=== PATIENT | female | born 1975 | race Caucasian/White ===

== ENCOUNTER 2018-01-22 08:24 | Emergency (ER) | payer OTHER ==
--- NOTE | 2018-01-22 09:30 | ER Document Report ---
ED Respiratory Problem - General Chief Complaint: Shortness Of Breath Stated Complaint: SHORTNESS OF BREATH, CHEST PAIN Time Seen by Provider: 01/22/18 09:23 Notes: The patient is a 42-year-old female, past medical history Hodgkin's lymphoma in her 20s (in remission), 0.25 packs/day smoker, presents with several days of a dry cough and nasal congestion. Earlier today, she began to feel slightly short of breath and had some substernal chest pain, which resolved. She had this in the past and it quickly resolved without intervention. She denies hemoptysis, fevers, leg swelling, OCP use, nausea, vomiting, radiation of her chest pain or back pain. - Related Data Allergies/Adverse Reactions: Iodinated Contrast- Oral and IV Dye Allergy (Verified 01/22/18 09:25) iodine Allergy (Verified 01/22/18 08:28) Penicillins Allergy (Verified 01/22/18 08:28) Past Medical History - General Information source: Patient - Social History Smoking Status: Current Every Day Smoker Frequency of alcohol use: None Drug Abuse: None Family History: Reviewed & Not Pertinent Patient has suicidal ideation: No Patient has homicidal ideation: No Renal/ Medical History: Denies: Hx Peritoneal Dialysis Review of Systems - Review of Systems Notes: REVIEW OF SYSTEMS: CONSTITUTIONAL: -fevers, -chills EENT: -eye pain, -difficulty swallowing, -nasal congestion CARDIOVASCULAR: +chest pain, -syncope. RESPIRATORY: +cough, +SOB GASTROINTESTINAL: -abdominal pain, -nausea, -vomiting, -diarrhea GENITOURINARY: -dysuria, -hematuria MUSCULOSKELETAL: -back pain, -neck pain SKIN: -rash or skin lesions. HEMATOLOGIC: -easy bruising or bleeding. LYMPHATIC: -swollen, enlarged glands. NEUROLOGICAL: -altered mental status or loss of consciousness, -headache, - neurologic symptoms PSYCHIATRIC: -anxiety, -depression. ALL OTHER SYSTEMS REVIEWED AND NEGATIVE. Physical Exam - Vital signs Vitals: Temp Pulse Resp BP Pulse Ox 98.5 F 97 16 145/99 H 98 01/22/18 08:42 01/22/18 08:42 01/22/18 08:42 01/22/18 08:42 01/22/18 08:42 - Notes Notes: PHYSICAL EXAMINATION: GENERAL: Well-appearing, well-nourished and in no acute distress. HEAD: Atraumatic, normocephalic. EYES: Pupils equal round and reactive to light, extraocular movements intact, sclera anicteric, conjunctiva are normal. ENT: nares patent, oropharynx clear without exudates. Moist mucous membranes. NECK: Normal range of motion, supple without lymphadenopathy LUNGS: Breath sounds clear to auscultation bilaterally and equal. No wheezes rales or rhonchi. HEART: Regular rate and rhythm without murmurs ABDOMEN: Soft, nontender, normoactive bowel sounds. No guarding, no rebound. No masses appreciated. EXTREMITIES: Normal range of motion, no pitting or edema. No cyanosis. NEUROLOGICAL: Cranial nerves grossly intact. Normal speech, normal gait. Normal sensory and motor exams. PSYCH: Normal mood, normal affect. SKIN: Warm, Dry, normal turgor, no rashes or lesions noted. Course - Re-evaluation Re-evalutation: Patient is in no acute respiratory distress. EKG does not show any ischemic changes and troponin is negative. Her HEART score is 1. She is low risk for PE , but unable to PERC out due to her Hx of cancer. Will send d-dimer and obtain CTA if positive. D-dimer is negative, so this rules out PE. CXR does not show any acute infiltrates. Symptoms are atypical for aortic dissection at this time. Instructed her about chest wall pain management and instructions to follow with her primary care physician. Given very strict return precautions and she understands. - Vital Signs Vital signs: Temp Pulse Resp BP Pulse Ox 98.5 F 97 16 145/99 H 98 01/22/18 08:42 01/22/18 08:42 01/22/18 08:42 01/22/18 08:42 01/22/18 08:42 - Laboratory Result Diagrams: 01/22/18 09:37 01/22/18 09:37 Laboratory results interpreted by me: 01/22/18 01/22/18 09:37 09:37 Hgb 10.5 L Hct 33.2 L MCV 73 L MCH 22.9 L MCHC 31.6 L RDW 17.4 H Eosinophils % 7.5 H Creatine Kinase 28 L - Diagnostic Test Radiology reviewed: Image reviewed, Reports reviewed Radiology results interpreted by me: CXR: NAD - EKG Interpretation by Oh EKG shows normal: Sinus rhythm, [place], Intervals, QRS Complexes, ST-T Waves Rate: Normal Discharge - Discharge Clinical Impression: Shortness of breath Chest pain Qualifiers: Chest pain type: unspecified Qualified Code(s): R07.9 - Chest pain, unspecified Condition: Stable Disposition: HOME, SELF-CARE Additional Instructions: CHEST PAIN OF UNCLEAR CAUSE: The exact cause of your chest pain isn't clear. Fortunately, there is no evidence of a dangerous medical condition. Further testing may be required to find the source of the pain. Most often, we find that this pain is coming from the chest wall -- the muscles or rib joints in the chest. But chest pain can come from the lung and lung lining, the esophagus, the heart valves or heart lining, and even the stomach or gallbladder. Rest. Eat lightly until the pain is gone. We may prescribe medicine for pain and inflammation. You should call the physician immediately if the pain radiates to the shoulder, jaw or arms; if you start to run a fever or develop a cough; or if you develop shortness of breath, or other new or alarming symptoms. NORMAL EXAM AND WORKUP: At this time, your examination and workup show no significant abnormality. No significant abnormal physical findings were noted. All laboratory, EKG, and imaging (x-ray, CT scans, ultrasound) studies that were ordered show no significant abnormality. Although your examination and all studies that were ordered showed no significant abnormal finding, there are no examinations and no studies that are 100% accurate. There is always the possibility that some abnormality could exist and not be detected with physical examination or within the limits and capabilities of laboratory and other studies. You should return or follow up as you were instructed on your visit today for further evaluation if your symptoms do not resolve. CHEST WALL PAIN: Your chest pain may be coming from the chest wall. This is often caused by straining the muscles or joints in the chest during physical activity, direct trauma, coughing, or vigorous vomiting. Persons with arthritis are especially prone to this type of pain, due to inflammation of the cartilage joints near the breast bone. Occasionally, no cause can be found. Rest from strenuous physical activity. This kind of chest pain is usually made worse by movement of the chest. Depending on the symptoms, we may prescribe medicine for pain, muscle relaxation, and antiinflammatory effects. If the pain is new, and seems to be due to muscle strain, cold packs can help. Otherwise, apply gentle warmth to the painful area for 15 minutes every hour or two. You should call contact the doctor immediately if things change. Further evaluation is needed if you develop a fever or cough, if the nature of the pain changes, or if you become short of breath. ACID REFLUX DISEASE (GERD): Gastro-Esophageal Reflux Disease (GERD) is caused by stomach acid refluxing back up into the esophagus. The valve at the end of the esophagus may be weak. This is common in persons with a hiatal hernia. GERD symptoms can include indigestion, chest pain, heartburn, or food "sticking." Certain foods, alcohol, and aspirin can make GERD worse. Treatment depends on the severity. Usually, antacids or acid-suppressing medicines are used. When the esophagus is acutely inflamed, the physician will often prescribe membrane-protective drugs such as Carafate. Some patients benefit from medication such as Reglan that tightens the valve at the top of the stomach. Avoid those foods that bring on your symptoms. For many people, these foods are coffee, chocolate, onions, garlic, and carbonated drinks. Don't use alcohol, aspirin, caffeine, or tobacco. Don't eat late at night -- within 4 hours of bedtime. Don't over-eat. If necessary, elevate the head of your bed about 4 inches so that stomach acid will not roll up into your esophagus. Call the doctor if you develop severe chest pain, inability to swallow fluids, fever, or worsening symptoms. FOLLOW-UP CARE: If you have been referred to a physician for follow-up care, call the physician s office for an appointment as you were instructed or within the next two days. If you experience worsening or a significant change in your symptoms, notify the physician immediately or return to the Emergency Department at any time for re-evaluation. Prescriptions: Benzonatate [Tessalon Perle 100 mg Capsule] 100 mg PO Q8HP PRN #14 cap PRN Reason: Forms: Elevated Blood Pressure Referrals: [facility] [Outside] - Follow up as needed
--- NOTE | 2018-01-22 09:35 | EKG REPORT ---
SEVERITY:- NORMAL ECG - SINUS RHYTHM : Confirmed by: Yoanna Ocampo 22-Jan-2018 09:34:51
[2018-01-22 09:48] LABS: ABSOLUTE EOSINOPHILS # (AUTO) 0.4 10^3/uL (0.0-0.6); ABSOLUTE MONOCYTES (AUTO) 0.4 10^3/uL (0.1-1.4); ABSOLUTE NEUT (AUTO) 3.5 10^3/uL (1.7-8.2); BASOPHILS % (AUTO) 0.9 % (0-2); EOSINOPHILS % (AUTO) 7.5 % (0-6); HEMATOCRIT 33.2 % (36.0-47.0); HEMOGLOBIN 10.5 g/dL (12.0-15.5); LYMPHOCYTES % (AUTO) 18.4 % (13-45); MEAN CORPUSCULAR HEMOGLOBIN 22.9 pg (27.0-33.4); MEAN CORPUSCULAR HGB CONC 31.6 g/dL (32.0-36.0); MEAN CORPUSCULAR VOLUME 73 fl (80-97); MONOCYTES % (AUTO) 8.1 % (3-13); PLATELET COUNT 262 10^3/uL (150-450); RED BLOOD COUNT 4.57 10^6/uL (3.72-5.28); RED CELL DISTRIBUTION WIDTH 17.4 % (11.5-14.0); SEGMENTED NEUTROPHILS % (AUTO) 65.1 % (42-78); TOTAL CELLS COUNTED % (AUTO) 100 %; WHITE BLOOD COUNT 5.4 10^3/uL (4.0-10.5)
[2018-01-22 10:06] LABS: ALANINE AMINOTRANSFERASE 26 U/L (9-52); ALBUMIN 3.8 g/dL (3.5-5.0); ALKALINE PHOSPHATASE 81 U/L (38-126); ANION GAP 8 (5-19); ASPARTATE AMINO TRANSFERASE 16 U/L (14-36); BILIRUBIN,DIRECT 0.2 mg/dL (0.0-0.4); BILIRUBIN,TOTAL 0.4 mg/dL (0.2-1.3); BLOOD UREA NITROGEN 12 mg/dL (7-20); CARBON DIOXIDE 26 mmol/L (22-30); CHLORIDE 107 mmol/L (98-107); CREATINE KINASE 28 U/L (30-135); GLUCOSE 86 mg/dL (75-110); POTASSIUM 4.6 mmol/L (3.6-5.0); SODIUM 141.3 mmol/L (137-145); TOTAL PROTEIN 6.5 g/dL (6.3-8.2)
--- NOTE | 2018-01-22 10:09 | RADIOLOGY REPORT (SQ) ---
EXAM DESCRIPTION: CHEST 2 VIEWS COMPLETED DATE/TIME: 01/22/2018 9:51 am REASON FOR STUDY: SOB, chest pain COMPARISON: None. EXAM PARAMETERS: NUMBER OF VIEWS: two views TECHNIQUE: Digital Frontal and Lateral radiographic views of the chest acquired. RADIATION DOSE: NA LIMITATIONS: none FINDINGS: LUNGS AND PLEURA: No opacities, masses or pneumothorax. No pleural effusion. MEDIASTINUM AND HILAR STRUCTURES: No masses or contour abnormalities. HEART AND VASCULAR STRUCTURES: Heart normal size. No evidence for failure. BONES: No acute findings. HARDWARE: None in the chest. OTHER: No other significant finding. IMPRESSION: NO ACUTE RADIOGRAPHIC FINDING IN THE CHEST. TECHNICAL DOCUMENTATION: JOB ID: [id number] [employer]- All Rights Reserved Reading location - IP/workstation name: [email or web address]
[2018-01-22 10:39] VITALS: BP 124/84
== END 2018-01-22 10:50 | disposition home or self-care (01) ==
LOC: ER 08:24
DX: R06.02 Shortness of breath (principal); R07.9 Chest pain, unspecified; R05 Cough; R09.81 Nasal congestion; Z85.72 Personal history of non-Hodgkin lymphomas; F17.200 Nicotine dependence, unspecified, uncomplicated
CPT/HCPCS: 36415; 71046; 80053; 82550; 84484; 84703; 85025; 85379; 93005; 93010; 99285

== ENCOUNTER 2019-02-24 04:35 | Observation (INO) | payer SELFPAY ==
--- NOTE | 2019-02-24 07:53 | RADIOLOGY REPORT (SQ) ---
Chest single view on 02/24/2019 at 7:31 AM CLINICAL INDICATION: Chest pain COMPARISON: 01/22/2018 FINDINGS: The lungs are clear. Cardiac, hilar and mediastinal contours are within normal limits. Pulmonary vascularity is within normal limits. No bony abnormality is noted. IMPRESSION: No active disease.
[2019-02-24 08:08] LABS: ABSOLUTE BASOPHILS # (AUTO) 0.1 10^3/uL (0.0-0.2); ABSOLUTE EOSINOPHILS # (AUTO) 0.2 10^3/uL (0.0-0.6); ABSOLUTE MONOCYTES (AUTO) 0.3 10^3/uL (0.1-1.4); ABSOLUTE NEUT (AUTO) 6.6 10^3/uL (1.7-8.2); BASOPHILS % (AUTO) 0.6 % (0-2); EOSINOPHILS % (AUTO) 1.9 % (0-6); HEMATOCRIT 30.9 % (36.0-47.0); HEMOGLOBIN 9.9 g/dL (12.0-15.5); LYMPHOCYTES % (AUTO) 12.2 % (13-45); MEAN CORPUSCULAR HEMOGLOBIN 22.5 pg (27.0-33.4); MEAN CORPUSCULAR HGB CONC 32.2 g/dL (32.0-36.0); MEAN CORPUSCULAR VOLUME 70 fl (80-97); MONOCYTES % (AUTO) 3.8 % (3-13); PLATELET COUNT 292 10^3/uL (150-450); RED BLOOD COUNT 4.42 10^6/uL (3.72-5.28); RED CELL DISTRIBUTION WIDTH 16.8 % (11.5-14.0); SEGMENTED NEUTROPHILS % (AUTO) 81.5 % (42-78); TOTAL CELLS COUNTED % (AUTO) 100 %; WHITE BLOOD COUNT 8.2 10^3/uL (4.0-10.5)
[2019-02-24 08:09] LABS: APPEARANCE,URINE CLEAR; BILIRUBIN,URINE NEGATIVE (NEGATIVE); COLOR,URINE YELLOW; GLUCOSE, URINE NEGATIVE (NEGATIVE); KETONES,URINE TRACE mg/dL (NEGATIVE); LEUKOCYTE ESTERASE,URINE NEGATIVE (NEGATIVE); NITRITE,URINE NEGATIVE (NEGATIVE); PROTEIN,URINE NEGATIVE (NEGATIVE); URINE SPECIFIC GRAVITY 1.029; UROBILINOGEN,URINE NEGATIVE mg/dL (<2.0)
--- NOTE | 2019-02-24 08:30 | ER Document Report ---
Entered by RANDI RANGEL SCRIBE 02/24/19 0724 Acting as scribe for:YOHANA KUO MD ED Cardiac - General Chief Complaint: Chest Pain Stated Complaint: CHEST PAIN Time Seen by Provider: 02/24/19 07:10 Mode of Arrival: Medic Information source: Patient Notes: 43-year-old female with Hodgkin's lymphoma in remission who presents to the emergency department today with complaints of chest pain with associated dizziness and shortness of breath which began this morning at around 0350 while the patient was at work. Patient states a coworker called EMS just a few mi nutes after her pain began. Patient reports getting x2 nitroglycerin from EMS which did relieve her chest pain but her dizziness has remained. Patient states she has had chest pain similar to this in the past "just not this bad". Patient denies nausea. TRAVEL OUTSIDE OF THE [place] IN LAST 30 DAYS: No - Related Data Allergies/Adverse Reactions: Iodinated Contrast- Oral and IV Dye Allergy (Verified 01/22/18 09:25) iodine Allergy (Verified 01/22/18 08:28) Penicillins Allergy (Verified 01/22/18 08:28) Past Medical History - General Information source: Patient - Social History Smoking Status: Current Every Day Smoker Cigarette use (# per day): Yes - 1/2 ppd Frequency of alcohol use: None Drug Abuse: None Lives with: Family Family History: Other - Grandmother had "heart disease" in her 50s Review of Systems - Review of Systems Constitutional: No symptoms reported EENT: No symptoms reported Cardiovascular: See HPI, Chest pain, Dizziness Respiratory: See HPI, Short of breath Gastrointestinal: denies: Nausea Genitourinary: No symptoms reported Female Genitourinary: No symptoms reported Musculoskeletal: No symptoms reported Skin: No symptoms reported Hematologic/Lymphatic: No symptoms reported Neurological/Psychological: No symptoms reported -: Yes All other systems reviewed and negative Physical Exam - Vital signs Vitals: Temp Pulse Resp BP Pulse Ox 98.1 F 84 18 82/42 L 100 02/24/19 04:39 02/24/19 04:39 02/24/19 04:39 02/24/19 04:39 02/24/19 04:39 - Notes Notes: Physical Exam: General: Alert, appears well. HEENT: Normocephalic. Atraumatic. PERRL. Extraocular movements intact. Oropharynx clear. No carotid bruits. No nystagmus or dizziness elicited with rapid head movement. Neck: Supple. Non-tender. Respiratory: No respiratory distress. Clear and equal breath sounds bilaterally. Chest is not tender with palpation, unable to reproduce chest pain. Cardiovascular: Regular rate and rhythm. Abdominal: Morbidly obese. Non-tender. No distension. Normal Bowel Sounds. Back: Non-tender. No deformity or step off. Extremities: Moves all four extremities. Upper extremities: Normal inspection. Normal ROM. Lower extremities: Normal inspection. No edema. Normal ROM. Neurological: Normal cognition. AAOx4. Normal speech. Psychological: Normal affect. Normal Mood. Skin: Warm. Dry. Normal color. Course - Vital Signs Vital signs: Temp Pulse Resp BP Pulse Ox 98.1 F 91 13 132/97 H 98 02/24/19 04:39 02/24/19 05:27 02/24/19 09:01 02/24/19 09:01 02/24/19 09:01 - Laboratory Result Diagrams: 02/24/19 07:40 02/24/19 07:40 Laboratory results interpreted by me: 02/24/19 02/24/19 07:40 07:40 Hgb 9.9 L Hct 30.9 L MCV 70 L MCH 22.5 L RDW 16.8 H Seg Neutrophils % 81.5 H Lymphocytes % 12.2 L Urine Ketones TRACE H Urine Blood SMALL H - Diagnostic Test Radiology reviewed: Image reviewed, Reports reviewed - Chest x-ray is unremarkable - EKG Interpretation by Tx EKG shows normal: Sinus rhythm, [place], QRS Complexes, ST-T Waves. abnormal: Intervals Rate: Normal - 89 Rhythm: NSR P Waves: LAE When compared to previous EKG there are: No significant change - Consults Dov Milton NP Time consulted: 09:20 Consulted provider: will come to ER Discharge - Discharge Clinical Impression: Chest pain Qualifiers: Chest pain type: unspecified Qualified Code(s): R07.9 - Chest pain, unspecified Condition: Stable Disposition: ADMITTED OBSERVATION Admitting Provider: Froylan (Hospitalist) Unit Admitted: Medical Floor Scribe Attestation: 02/24/19 07:25 I personally performed the services described in the documentation, reviewed and edited the documentation which was dictated to the scribe in my presence, and it accurately records my words and actions. I personally performed the services described in the documentation, reviewed and edited the documentation which was dictated to the scribe in my presence, and it accurately records my words and actions.
[2019-02-24 08:43] LABS: ALANINE AMINOTRANSFERASE 17 U/L (9-52); ALBUMIN 3.7 g/dL (3.5-5.0); ALKALINE PHOSPHATASE 81 U/L (38-126); ANION GAP 10 (5-19); ASPARTATE AMINO TRANSFERASE 18 U/L (14-36); BILIRUBIN,DIRECT 0.2 mg/dL (0.0-0.4); BILIRUBIN,TOTAL 0.3 mg/dL (0.2-1.3); BLOOD UREA NITROGEN 13 mg/dL (7-20); CALCIUM 8.9 mg/dL (8.4-10.2); CARBON DIOXIDE 24 mmol/L (22-30); CHLORIDE 105 mmol/L (98-107); CREATINE KINASE 42 U/L (30-135); GLUCOSE 83 mg/dL (75-110); TOTAL PROTEIN 6.3 g/dL (6.3-8.2)
[2019-02-24 08:55] LABS: CREATINE KINASE MB 0.66 ng/mL (<4.55)
[2019-02-24 08:56] LABS: TROPONIN I < 0.012 ng/mL
[2019-02-24] MEDS ORDERED: ZOLPIDEM TARTRATE 5 MG TABLET PO PRN (09:45)
[2019-02-24] MEDS ORDERED: ONDANSETRON 4 MG TAB.RAPDIS PO PRN (09:45)
--- NOTE | 2019-02-24 09:50 | Progress Note Acknowledgement ---
Progress Note Acknowledgement Progess Note Acknowledgement: I, the undersigned member of the medical staff with appropriate privileges and with supervisory authority over [Dov Milton], a dependent practice allied health professional, acknowledge that I have reviewed the progress notes entered on this patient, and in my professional judgment believe that the assessment made and/or any care evidenced was appropriate
--- NOTE | 2019-02-24 09:56 | PDOC H&P ---
History of Present Illness Admission Date/PCP: 02/24/2019 No primary care Patient complains of: Chest pain radiation to left arm History of Present Illness: NATI GOULD is a 43 year old female who presents after presenting from her workplace with substernal chest pain rating to her left arm. 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 EMS arrived gave patient baby aspirin 2 nitros with good effect. Patient has no significant medical history or family history of coronary artery disease. Patient has not had a complete work-up in quite some time as well. Patient states a headache at this time most likely secondary to nitroglycerin. She had no other treatment prior to arrival no true aggravating factors. Past Medical History Medical History: None Cardiac Medical History: Reports: None Pulmonary Medical History: Reports: None EENT Medical History: Reports: None Neurological Medical History: Reports: None Endocrine Medical History: Reports: None Renal/ Medical History: Reports: None Malignancy Medical History: Reports: None GI Medical History: Reports: None Musculoskeltal Medical History: Reports: None Skin Medical History: Reports: None Psychiatric Medical History: Reports: None Traumatic Medical History: Reports: None Hematology: Reports: None Infectious Medical History: Reports: None Past Surgical History Past Surgical History: Reports: None Social History Information Source: Patient Lives with: Family Smoking Status: Current Every Day Smoker Cigarettes Packs Per Day: 0.5 Frequency of Alcohol Use: None Hx Recreational Drug Use: No Drugs: None Hx Prescription Drug Abuse: No - Advance Directive Resuscitation Status: Full Code Family History Family History: Other - Grandmother had "heart disease" in her 50s Parental Family History Reviewed: Yes Children Family History Reviewed: Yes Sibling(s) Family History Reviewed.: Yes Medication/Allergy Home Medications: Benzonatate [Tessalon Perle 100 mg Capsule] 100 mg PO Q8HP PRN #14 cap 01/22/18 Allergies/Adverse Reactions: Iodinated Contrast- Oral and IV Dye Allergy (Verified 01/22/18 09:25) iodine Allergy (Verified 01/22/18 08:28) Penicillins Allergy (Verified 01/22/18 08:28) Review of Systems Constitutional: ABSENT: chills, fever(s), headache(s), weight gain, weight loss Eyes: ABSENT: visual disturbances Ears: ABSENT: hearing changes Cardiovascular: PRESENT: chest pain Respiratory: ABSENT: cough, hemoptysis Gastrointestinal: ABSENT: abdominal pain, constipation, diarrhea, hematemesis, hematochezia, nausea, vomiting Genitourinary: ABSENT: dysuria, hematuria Musculoskeletal: ABSENT: joint swelling Integumentary: ABSENT: rash, wounds Neurological: ABSENT: abnormal gait, abnormal speech, confusion, dizziness, foc al weakness, syncope Psychiatric: ABSENT: anxiety, depression, homidical ideation, suicidal ideation Endocrine: ABSENT: cold intolerance, heat intolerance, polydipsia, polyuria Hematologic/Lymphatic: ABSENT: easy bleeding, easy bruising Physical Exam Vital Signs: Temp Pulse Resp BP Pulse Ox 98.1 F 91 13 132/97 H 98 02/24/19 04:39 02/24/19 05:27 02/24/19 09:01 02/24/19 09:01 02/24/19 09:01 Intake & Output 02/23/19 02/24/19 02/25/19 06:59 06:59 06:59 Weight 136.985 kg General appearance: PRESENT: no acute distress, well-developed, well-nourished Head exam: PRESENT: atraumatic, normocephalic Eye exam: PRESENT: conjunctiva pink, EOMI, PERRLA. ABSENT: scleral icterus Ear exam: PRESENT: normal external ear exam Mouth exam: PRESENT: moist, tongue midline Neck exam: ABSENT: carotid bruit, JVD, lymphadenopathy, thyromegaly Respiratory exam: PRESENT: clear to auscultation sree. ABSENT: rales, rhonchi, wheezes Cardiovascular exam: PRESENT: RRR. ABSENT: diastolic murmur, rubs, systolic murmur Pulses: PRESENT: normal dorsalis pedis pul Vascular exam: PRESENT: normal capillary refill GI/Abdominal exam: PRESENT: normal bowel sounds, soft. ABSENT: distended, guarding, mass, organolmegaly, rebound, tenderness Rectal exam: PRESENT: deferred Extremities exam: PRESENT: full ROM. ABSENT: calf tenderness, clubbing, pedal edema Neurological exam: PRESENT: alert, awake, oriented to person, oriented to place, oriented to time, oriented to situation, CN II-XII grossly intact. ABSENT: motor sensory deficit Psychiatric exam: PRESENT: appropriate affect, normal mood. ABSENT: homicidal ideation, suicidal ideation Skin exam: PRESENT: dry, intact, warm. ABSENT: cyanosis, rash Results Laboratory Results: 02/24/19 07:40 02/24/19 07:40 02/24/19 02/24/19 02/24/19 07:40 07:40 07:40 WBC 8.2 RBC 4.42 Hgb 9.9 L Hct 30.9 L MCV 70 L MCH 22.5 L MCHC 32.2 RDW 16.8 H Plt Count 292 Seg Neutrophils % 81.5 H Lymphocytes % 12.2 L Monocytes % 3.8 Eosinophils % 1.9 Basophils % 0.6 Absolute Neutrophils 6.6 Absolute Lymphocytes 1.0 Absolute Monocytes 0.3 Absolute Eosinophils 0.2 Absolute Basophils 0.1 Sodium 138.5 Potassium 4.0 Chloride 105 Carbon Dioxide 24 Anion Gap 10 BUN 13 Creatinine 0.78 Est GFR ( Amer) > 60 Est GFR (Non-Af Amer) > 60 Glucose 83 Calcium 8.9 Total Bilirubin 0.3 AST 18 ALT 17 Alkaline Phosphatase 81 Total Protein 6.3 Albumin 3.7 Urine Color YELLOW Urine Appearance CLEAR Urine pH 5.0 Ur Specific [place] 1.029 Urine Protein NEGATIVE Urine Glucose (UA) NEGATIVE Urine Ketones TRACE H Urine Blood SMALL H Urine Nitrite NEGATIVE Ur Leukocyte Esterase NEGATIVE Urine WBC (Auto) 2 Urine RBC (Auto) 1 02/24/19 02/24/19 07:40 07:40 Creatine Kinase 42 CK-MB (CK-2) 0.66 Troponin I < 0.012 Impressions: Chest X-Ray 02/24/19 07:16 IMPRESSION: No active disease. Assessment and Plan - Diagnosis (1) Chest pain Qualifiers: Chest pain type: unspecified Qualified Code(s): R07.9 - Chest pain, unspecified Is this a current diagnosis for this admission?: Yes Plan: 02/24/2019-admit to [facility] with telemetry. Serial troponins. Aspirin 81 mg p.o. daily. Lipid panel, thyroid panel, A1c. Consult cardiology as needed. Most likely will require an outpatient stress test. PRN nitro and morphine for chest pain. (2) Anemia Qualifiers: Anemia type: iron deficiency Is this a current diagnosis for this admission?: Yes Plan: 02/24/2019-most likely iron deficient in nature. Patient has a MCV of 70. Iron studies at this time will treat as appropriate. (3) Tobacco abuse Is this a current diagnosis for this admission?: Yes Plan: 02/24/2019-continue to educate about the benefits of smoking cessation. (4) Morbid obesity Is this a current diagnosis for this admission?: Yes Plan: 02/24/2019-educated about the positive health benefits of weight loss. - Time Time Spent with patient: 35 or more minutes
[2019-02-24] MEDS ORDERED: MORPHINE SULFATE 10 MG/ML INJ IV PRN (09:57)
[2019-02-24 10:21] LABS: ABSOLUTE RETICS # 0.095 10^6/uL (0.028-0.122); RETICULOCYTE COUNT (AUTO) 2.17 % (0.66-2.85)
[2019-02-24] MEDS: OXYCODONE-ACETAMINOPHEN 5-325 MG TABLET PO PRN ×2 (10:39→18:41)
[2019-02-24 11:00] LABS: FERRITIN 3.76 ng/mL (6.2-137.0)
[2019-02-24 11:30] LABS: FOLATE 6.76 ng/mL (>2.76)
--- NOTE | 2019-02-24 23:48 | EKG REPORT ---
SEVERITY:- BORDERLINE ECG - SINUS RHYTHM PROBABLE LEFT ATRIAL ABNORMALITY BORDERLINE PROLONGED QT INTERVAL : Confirmed by: Yoanna Ocampo 24-Feb-2019 23:46:54
[2019-02-25] MEDS: OXYCODONE-ACETAMINOPHEN 5-325 MG TABLET PO PRN (06:08)
[2019-02-25 06:18] LABS: ABSOLUTE BASOPHILS # (AUTO) 0.1 10^3/uL (0.0-0.2); ABSOLUTE EOSINOPHILS # (AUTO) 0.3 10^3/uL (0.0-0.6); ABSOLUTE LYMPHOCYTES (AUTO) 1.3 10^3/uL (0.5-4.7); ABSOLUTE MONOCYTES (AUTO) 0.4 10^3/uL (0.1-1.4); ABSOLUTE NEUT (AUTO) 3.2 10^3/uL (1.7-8.2); EOSINOPHILS % (AUTO) 5.9 % (0-6); HEMATOCRIT 32.2 % (36.0-47.0); LYMPHOCYTES % (AUTO) 25.1 % (13-45); MEAN CORPUSCULAR VOLUME 71 fl (80-97); MONOCYTES % (AUTO) 8.1 % (3-13); PLATELET COUNT 289 10^3/uL (150-450); RED BLOOD COUNT 4.54 10^6/uL (3.72-5.28); SEGMENTED NEUTROPHILS % (AUTO) 59.9 % (42-78); TOTAL CELLS COUNTED % (AUTO) 100 %; WHITE BLOOD COUNT 5.4 10^3/uL (4.0-10.5)
[2019-02-25 06:34] LABS: ANION GAP 7 (5-19); BLOOD UREA NITROGEN 15 mg/dL (7-20); CALCIUM 8.9 mg/dL (8.4-10.2); CARBON DIOXIDE 28 mmol/L (22-30); CHLORIDE 104 mmol/L (98-107); CHOLESTEROL 165.73 mg/dL (0-200); GLUCOSE 88 mg/dL (75-110); POTASSIUM 4.6 mmol/L (3.6-5.0); TRIGLYCERIDES 137 mg/dL (<150)
[2019-02-25 06:44] LABS: DIRECT LDL 107 mg/dL (<100)
[2019-02-25 07:14] LABS: FREE T4 (FREE THYROXINE) 0.81 ng/dL (0.78-2.19)
[2019-02-25 07:28] LABS: THYROID STIMULATING HORMONE 7.26 uIU/mL (0.47-4.68)
--- NOTE | 2019-02-25 08:12 | PDOC DISCHARGE SUMMARY ---
General - Admit/Disc Date/PCP Admission Date/Primary Care Provider: 02/24/19 11:26 No primary care Discharge Date: 02/25/19 - Discharge Diagnosis (1) Chest pain Is this a current diagnosis for this admission?: Yes (2) Anemia Is this a current diagnosis for this admission?: Yes (3) Tobacco abuse Is this a current diagnosis for this admission?: Yes (4) Morbid obesity Is this a current diagnosis for this admission?: Yes - Additional Information Resuscitation Status: Full Code Discharge Diet: As Tolerated Discharge Activity: Activity As Tolerated Prescriptions: Ferrous Sulfate 325 mg PO BID 30 Days #60 tablet. Levothyroxine Sodium [Synthroid 0.025 mg Tablet] 25 mcg PO DAILY #30 tablet Metoprolol Tartrate [Lopressor 25 mg Tablet] 12.5 mg PO Q12 #60 tab Simvastatin 20 mg PO DAILY #30 tablet Home Medications: Ferrous Sulfate 325 mg PO BID 30 Days #60 tablet. 02/25/19 Levothyroxine Sodium [Synthroid 0.025 mg Tablet] 25 mcg PO DAILY #30 tablet 02/25/19 Metoprolol Tartrate [Lopressor 25 mg Tablet] 12.5 mg PO Q12 #60 tab 02/25/19 Simvastatin 20 mg PO DAILY #30 tablet 02/25/19 History of Present Illness History of Present Illness: NATI BOND is a 43 year old female who presents after presenting from her workplace with substernal chest pain rating to her left arm. 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 EMS arrived gave patient baby aspirin 2 nitros with good effect. Patient has no significant medical history or family history of coronary artery disease. Patient has not had a complete work-up in quite some time as well. Patient states a headache at this time most likely secondary to nitroglycerin. She had no other treatment prior to arrival no true aggravating factors. 02/25/2019-Ms. Bond is a very pleasant 43-year-old female presented to ER yesterday from workplace with substernal chest pain rating her left arm. Patient was admitted had serial troponins which were negative and was placed on aspirin, beta-blockers, and low-dose statin. Patient's blood work returned this morning showing a hypothyroidism with TSH of 7.0, and LDL of 107, and negative troponins. At this time patient proceeded to return home with [facility] Patient needs to have an outpatient stress test. I will continue patient on aspirin 81 g p.o. daily, Lopressor 12.5 g p.o. twice daily, placed on ferrous sulfate 325 g p.o. twice daily and patient will need a repeat iron study in 2 to 3 months, and Synthroid 25 mics p.o. daily with a repeat TSH needed in 3 months. Patient and significant other was at bedside and agrees with plan of care. Physical Exam Vital Signs: Temp Pulse Resp BP Pulse Ox 98.1 F 88 16 141/75 H 96 02/24/19 17:37 02/25/19 02:00 02/24/19 17:37 02/24/19 17:37 02/24/19 17:37 Intake & Output 02/24/19 02/25/19 02/26/19 06:59 06:59 06:59 Intake Total 1250 Balance 1250 Weight 136.985 kg 136.2 kg General appearance: PRESENT: no acute distress, well-developed, well-nourished Head exam: PRESENT: atraumatic, normocephalic Eye exam: PRESENT: conjunctiva pink, EOMI, PERRLA. ABSENT: scleral icterus Ear exam: PRESENT: normal external ear exam Mouth exam: PRESENT: moist, tongue midline Neck exam: ABSENT: carotid bruit, JVD, lymphadenopathy, thyromegaly Respiratory exam: PRESENT: clear to auscultation sree. ABSENT: rales, rhonchi, wheezes Cardiovascular exam: PRESENT: RRR. ABSENT: diastolic murmur, rubs, systolic murmur Pulses: PRESENT: normal dorsalis pedis pul Vascular exam: PRESENT: normal capillary refill GI/Abdominal exam: PRESENT: normal bowel sounds, soft. ABSENT: distended, gu arding, mass, organolmegaly, rebound, tenderness Rectal exam: PRESENT: deferred Extremities exam: PRESENT: full ROM. ABSENT: calf tenderness, clubbing, pedal edema Neurological exam: PRESENT: alert, awake, oriented to person, oriented to place, oriented to time, oriented to situation, CN II-XII grossly intact. ABSENT: mot or sensory deficit Psychiatric exam: PRESENT: appropriate affect, normal mood. ABSENT: homicidal ideation, suicidal ideation Skin exam: PRESENT: dry, intact, warm. ABSENT: cyanosis, rash Results Laboratory Results: 02/25/19 06:02 02/25/19 06:02 02/24/19 02/24/19 02/24/19 07:40 07:40 07:40 WBC 8.2 RBC 4.42 Hgb 9.9 L Hct 30.9 L MCV 70 L MCH 22.5 L MCHC 32.2 RDW 16.8 H Plt Count 292 Seg Neutrophils % 81.5 H Lymphocytes % 12.2 L Monocytes % 3.8 Eosinophils % 1.9 Basophils % 0.6 Absolute Neutrophils 6.6 Absolute Lymphocytes 1.0 Absolute Monocytes 0.3 Absolute Eosinophils 0.2 Absolute Basophils 0.1 Retic Count (auto) Absolute Retic Sodium 138.5 Potassium 4.0 Chloride 105 Carbon Dioxide 24 Anion Gap 10 BUN 13 Creatinine 0.78 Est GFR ( Amer) > 60 Est GFR (Non-Af Amer) > 60 Glucose 83 Calcium 8.9 Iron TIBC % Saturation Ferritin Total Bilirubin 0.3 AST 18 ALT 17 Alkaline Phosphatase 81 Total Protein 6.3 Albumin 3.7 Triglycerides Cholesterol LDL Cholesterol Direct VLDL Cholesterol HDL Cholesterol Vitamin B12 Folate TSH Free T4 Urine Color YELLOW Urine Appearance CLEAR Urine pH 5.0 Ur Specific [place] 1.029 Urine Protein NEGATIVE Urine Glucose (UA) NEGATIVE Urine Ketones TRACE H Urine Blood SMALL H Urine Nitrite NEGATIVE Ur Leukocyte Esterase NEGATIVE Urine WBC (Auto) 2 Urine RBC (Auto) 1 02/24/19 02/24/19 02/25/19 07:40 07:40 06:02 WBC 5.4 RBC 4.54 Hgb 10.0 L Hct 32.2 L MCV 71 L MCH 22.0 L MCHC 31.0 L RDW 17.0 H Plt Count 289 Seg Neutrophils % 59.9 Lymphocytes % 25.1 Monocytes % 8.1 Eosinophils % 5.9 Basophils % 1.0 Absolute Neutrophils 3.2 Absolute Lymphocytes 1.3 Absolute Monocytes 0.4 Absolute Eosinophils 0.3 Absolute Basophils 0.1 Retic Count (auto) 2.17 Absolute Retic 0.095 Sodium Potassium Chloride Carbon Dioxide Anion Gap BUN Creatinine Est GFR ( Amer) Est GFR (Non-Af Amer) Glucose Calcium Iron 21.0 L TIBC 488 H % Saturation 4 Ferritin 3.76 L Total Bilirubin AST ALT Alkaline Phosphatase Total Protein Albumin Triglycerides Cholesterol LDL Cholesterol Direct VLDL Cholesterol HDL Cholesterol Vitamin B12 227.0 L Folate 6.76 TSH Free T4 Urine Color Urine Appearance Urine pH Ur Specific [place] Urine Protein Urine Glucose (UA) Urine Ketones Urine Blood Urine Nitrite Ur Leukocyte Esterase Urine WBC (Auto) Urine RBC (Auto) 02/25/19 02/25/19 06:02 06:02 WBC RBC Hgb Hct MCV MCH MCHC RDW Plt Count Seg Neutrophils % Lymphocytes % Monocytes % Eosinophils % Basophils % Absolute Neutrophils Absolute Lymphocytes Absolute Monocytes Absolute Eosinophils Absolute Basophils Retic Count (auto) Absolute Retic Sodium 138.6 Potassium 4.6 Chloride 104 Carbon Dioxide 28 Anion Gap 7 BUN 15 Creatinine 0.84 Est GFR ( Amer) > 60 Est GFR (Non-Af Amer) > 60 Glucose 88 Calcium 8.9 Iron TIBC % Saturation Ferritin Total Bilirubin AST ALT Alkaline Phosphatase Total Protein Albumin Triglycerides 137 Cholesterol 165.73 LDL Cholesterol Direct 107 H VLDL Cholesterol 27.0 HDL Cholesterol 48 Vitamin B12 Folate TSH 7.26 H Free T4 0.81 Urine Color Urine Appearance Urine pH Ur Specific [place] Urine Protein Urine Glucose (UA) Urine Ketones Urine Blood Urine Nitrite Ur Leukocyte Esterase Urine WBC (Auto) Urine RBC (Auto) 02/24/19 02/24/19 02/24/19 07:40 07:40 14:00 Creatine Kinase 42 CK-MB (CK-2) 0.66 Troponin I < 0.012 < 0.012 02/24/19 19:46 Creatine Kinase CK-MB (CK-2) Troponin I < 0.012 Impressions: Chest X-Ray 02/24/19 07:16 IMPRESSION: No active disease. Qualifiers - * PATIENT BEING DISCHARGED WITH ANY OF THE FOLLOWING DIAGNOSIS: No Acute Heart Failure - Is this a Heart Failure Patient?: No Plan Time Spent: Greater than 30 Minutes
--- NOTE | 2019-02-25 08:17 | ADVANCED CARE ---
- Diagnosis (1) Chest pain Diagnosis Current: Yes (2) Anemia Diagnosis Current: Yes (3) Tobacco abuse Diagnosis Current: Yes (4) Morbid obesity Diagnosis Current: Yes Attendance: Myself, patient and significant other. Resuscitation Status: Full Code Discussion: Discussed plan of care with patient and significant other. At this time will place patient on Lopressor 12.5 mg p.o. twice daily, Synthroid 25 mcg p.o. daily, ferrous sulfate 325 mg p.o. twice daily, and a baby aspirin daily. Patient will follow-up with [facility] on outpatient basis for follow-up as well as referral for an outpatient stress test. Patient and significant other are in agreement with plan of care. Care Planning Goals: 1-metoprolol of 12.5 mg p.o. twice daily 2-Synthroid 25 mcg p.o. daily repeat thyroid level in 3 months 3-ferrous sulfate 325 mg p.o. daily with a repeat iron study in 2 to 3 months her primary care 4-primary care referral 5-outpatient stress test Time Spent: 15 minutes
[2019-02-25 09:06] VITALS: BP 137/66
[2019-02-25] MEDS ORDERED: ASPIRIN 81 MG TABLET, CHEWABLE PO SCH (10:00)
== END 2019-02-25 09:09 | disposition home or self-care (01) ==
LOC: ER 04:35 → EH 11:26 → 4S 18:20
PROVIDERS: ADMIT Internal Medicine; ATTEND Internal Medicine
DX: R07.2 Precordial pain (principal); D50.9 Iron deficiency anemia, unspecified; E66.01 Morbid (severe) obesity due to excess calories; R51 Headache; E03.9 Hypothyroidism, unspecified; F17.210 Nicotine dependence, cigarettes, uncomplicated; Z79.899 Other long term (current) drug therapy; Z82.49 Family history of ischemic heart disease and other diseases of the circulatory system; Z85.71 Personal history of Hodgkin lymphoma
CPT/HCPCS: 93005; 99285; 36415 ×2; 84439; 82553; 82607; 82550; 82728; 82746; 83540; 83550; 84443; 85025 ×2; 85045; 80048; 80053; 81001; 84484; 83036; 80061; 71045; 93010; G0378 ×3

== ENCOUNTER → 2019-03-15 | Outpatient (CLI) | payer OTHER ==
--- NOTE | 2019-03-15 10:27 | WOMENS IMAGING REPORT ---
EXAM DESCRIPTION: TRANSVAGINAL ULTRASOUND COMPLETED DATE/TIME: 03/15/2019 7:56 am REASON FOR STUDY: N93.8 OTHER SPECIFIED ABNORMAL UTERINE AND VAGINAL BLEEDING N93.8 OTHER SPECIFIED ABNORMAL UTERINE AND VAGINAL BLEEDING COMPARISON: None. TECHNIQUE: Dynamic and static grayscale images acquired of the pelvis via transvaginal approach and recorded on PACS. Additional selected color Doppler and spectral images recorded. LIMITATIONS: None. FINDINGS: UTERUS: Heterogeneous myometrium. No definable fibroid is seen. ENDOMETRIAL STRIPE: Thickened. CERVIX: Nabothian cysts are present. RIGHT OVARY AND DOPPLER: Ovary not seen. LEFT OVARY AND DOPPLER: Ovary not seen. FREE FLUID: None noted. OTHER: No other significant finding. MEASUREMENTS: UTERUS: 9.4 x 5.8 x 7 cm. ENDOMETRIAL STRIPE: 2.4 cm. RIGHT OVARY: Not seen LEFT OVARY: Not seen IMPRESSION: Heterogeneous myometrium. Markedly thickened endometrium. TECHNICAL DOCUMENTATION: JOB ID: [id number] [employer]- All Rights Reserved Reading location - IP/workstation name: [email or web address]
== END ==
LOC: WI 07:24
PROVIDERS: ATTEND Internal Medicine
DX: N93.8 Other specified abnormal uterine and vaginal bleeding (principal)
CPT/HCPCS: 76830

== ENCOUNTER → 2019-04-19 | Outpatient (CLI) | payer OTHER ==
--- NOTE | 2019-04-19 19:22 | XCELERA REPORT ---
[address] [address] Transthoracic Echocardiogram Report Name: NATI GOULD Age: 43 yrs Gender: Female : 1975 Patient Status: Preadmit Patient Location: Study Date: 04/19/2019 09:18 AM Height: 68 in Weight: 310 lb BSA: 2.5 m2 Procedure: A two-dimensional transthoracic echocardiogram with color flow and Doppler was performed. The study was technically limited with all images being suboptimal in quality. Reason For Study: CP History: CHEST PAIN. Ordering Physician: RICHY ANDREWS Performed By: Kendall Deras Interpretation Summary Frequent PVC's noted. The left ventricle is normal in size. There is normal left ventricular wall thickness. LV EF is 55% to 60% The left ventricular ejection fraction is within normal limits. Doppler measurements suggest impaired left ventricular relaxation, which is associated with grade I/IV or mild diastolic dysfunction By tissue doppler. The left ventricular wall motion is normal. There is no thrombus. No ASD , VSD , or PFO seen. The right ventricle is grossly normal size. The right ventricle is not well visualized secondary to technical limitations The right atrium is normal. The left atrium is mildly dilated. There is mild mitral annular calcification. There is no evidence of mitral valve prolapse. There is no vegetation seen on the mitral valve. There is mild mitral stenosis There is a trace amount of mitral regurgitation There is no aortic valvular vegetation. There is mild aortic stenosis There is a peak gradient of 25 mm of Hg , and mean gradient of 16 mm of Hg. There is a trace amount of aortic regurgitation There is no tricuspid stenosis. There is a trace amount of tricuspid regurgitation Unable to calculate RVSP due to insufficient TR jet. There is no pulmonic valvular stenosis. There is a trace amount of pulmonic regurgitation The aortic root is normal size. The inferior vena cava appeared normal and decreased > 50% with respiration (RAP 5-10 mmHg) There is no pericardial effusion. Frequent PVC's noted. MMode/2D Measurements & Calculations RVDd: 3.9 cm LVIDd: 5.7 cm FS: 26.9 % Ao root diam: 3.0 cm IVSd: 1.1 cm LVIDs: 4.2 cm EDV(Teich): Ao root area: LVPWd: 1.1 cm 162.2 ml 7.0 cm2 ESV(Teich): 78.2 ml LA dimension: 4.2 cm EF(Teich): 51.8 % LVOT diam: 2.3 cmLVLd ap4: 9.9 cm SV(MOD-sp4): LVOT area: EDV(MOD-sp4): 80.0 ml 182.0 ml 4.0 cm2 LVLs ap4: 8.9 cm ESV(MOD-sp4): 102.0 ml EF(MOD-sp4): 44.0 % Doppler Measurements & Calculations MV E max nathalie: MV P1/2t max nathalie: Ao V2 max: LV V1 max P.8 cm/sec 137.9 cm/sec 250.6 cm/sec 3.5 mmHg MV P1/2t: 83.0 msec Ao max PG: LV V1 mean PG: MVA(P1/2t): 2.7 cm2 25.2 mmHg 2.0 mmHg MV dec slope: Ao V2 mean: LV V1 max: 486.8 cm/sec2 186.4 cm/sec 93.8 cm/sec MV dec time: 0.14 sec Ao mean PG: LV V1 mean: 16.1 mmHg 65.4 cm/sec Ao V2 VTI: 52.7 cm LV V1 VTI: EDUARDA(I,D): 1.5 cm2 19.7 cm EDUARDA(V,D): 1.5 cm2 SV(LVOT): 78.9 ml PA V2 max: MV P1/2t-pr_phl: 100.2 cm/sec 83.0 msec PA max P.0 mmHg Left Ventricle The left ventricle is normal in size. There is normal left ventricular wall thickness. LV EF is 55% to 60%. The left ventricular ejection fraction is within normal limits. Doppler measurements suggest impaired left ventricular relaxation, which is associated with grade I/IV or mild diastolic dysfunction. By tissue doppler. The left ventricular wall motion is normal. There is no thrombus. No ASD , VSD , or PFO seen. Right Ventricle The right ventricle is grossly normal size. The right ventricle is not well visualized secondary to technical limitations. Atria The right atrium is normal. The left atrium is mildly dilated. Mitral Valve There is mild mitral annular calcification. There is no evidence of mitral valve prolapse. There is no vegetation seen on the mitral valve. There is mild mitral stenosis. There is a trace amount of mitral regurgitation. Aortic Valve There is no aortic valvular vegetation. There is mild aortic stenosis. There is a peak gradient of 25 mm of Hg , and mean gradient of 16 mm of Hg. There is a trace amount of aortic regurgitation. Tricuspid Valve There is no tricuspid stenosis. There is a trace amount of tricuspid regurgitation. Unable to calculate RVSP due to insufficient TR jet. Pulmonic Valve There is no pulmonic valvular stenosis. There is a trace amount of pulmonic regurgitation. Great Vessels The aortic root is normal size. The inferior vena cava appeared normal and decreased > 50% with respiration (RAP 5-10 mmHg). Effusions There is no pericardial effusion. : RICHY ANDREWS Lakshmi
== END ==
LOC: SP 08:47
PROVIDERS: ATTEND Internal Medicine
DX: R07.9 Chest pain, unspecified (principal)
CPT/HCPCS: 93306

== ENCOUNTER 2019-06-08 23:42 | Emergency (ER) | payer SELFPAY ==
[2019-06-09] MEDS ORDERED: DOXYCYCLINE HYCLATE 100 MG TABLET PO ONE (02:48)
[2019-06-09] MEDS ORDERED: IPRATROPIUM/ALBUTEROL 0.5-2.5 MG/3 ML AMPUL NEB ONE ×2 (02:48→04:38)
[2019-06-09] MEDS ORDERED: NORMAL SALINE 1000 ML 1,000 ML IV ONE (02:48)
[2019-06-09] MEDS ORDERED: CEFTRIAXONE 1 GM/D5W RTU 1 GM/50 ML RTUPB IV ONE (02:48)
--- NOTE | 2019-06-09 02:49 | ER Document Report ---
ED Respiratory Problem - General Chief Complaint: Breathing Difficulty Stated Complaint: SHORTNESS OF BREATH Time Seen by Provider: 06/09/19 02:43 Primary Care Provider: LINDA ACOSTA MD [Primary Care Provider] - Follow up as needed Notes: Patient is a 43-year-old female that comes to the emergency department for chief complaint of productive cough for past 2 weeks. She states cough is worsening, she has also started wheezing, had a harder time breathing, and also has pain with cough. She reports chills but has no recorded fevers. She smokes but denies COPD or asthma. She denies any daily medications or diagnosed medical problems. She denies alcohol or recreational drugs. TRAVEL OUTSIDE OF THE [place] IN LAST 30 DAYS: No - Related Data Allergies/Adverse Reactions: Iodinated Contrast Media [Iodinated Contrast- Oral and IV Dye] Allergy (Verified 01/22/18 09:25) iodine Allergy (Verified 01/22/18 08:28) Penicillins Allergy (Verified 01/22/18 08:28) Past Medical History - Social History Smoking Status: Current Every Day Smoker Chew tobacco use (# tins/day): No Frequency of alcohol use: None Drug Abuse: None Family History: Other Patient has suicidal ideation: No Patient has homicidal ideation: No Renal/ Medical History: Denies: Hx Peritoneal Dialysis Review of Systems - Review of Systems Constitutional: See HPI EENT: No symptoms reported Cardiovascular: See HPI Respiratory: See HPI Gastrointestinal: No symptoms reported Genitourinary: No symptoms reported Female Genitourinary: No symptoms reported Musculoskeletal: No symptoms reported Skin: No symptoms reported Hematologic/Lymphatic: No symptoms reported Neurological/Psychological: No symptoms reported Physical Exam - Vital signs Vitals: Temp Pulse Resp BP Pulse Ox 99.1 F 111 H 18 100/42 L 95 06/08/19 23:55 06/08/19 23:55 06/08/19 23:55 06/08/19 23:55 06/08/19 23:55 - Notes Notes: GENERAL: Alert, interacts well. No acute distress. HEAD: Normocephalic, atraumatic. EYES: Pupils equal, round, and reactive to light. Extraocular movements intact. ENT: Oral mucosa moist, tongue midline. Oropharynx unremarkable. Airway patent. NECK: Full range of motion. Supple. Trachea midline. LUNGS: Scattered wheezing and rhonchi. Occasional productive cough with greenish sputum. No respiratory distress or rales. HEART: Tachycardia, normal rhythm, no murmur ABDOMEN: Soft, non-tender. Non-distended. Bowel sounds present in all 4 quadrants. GENITOURINARY: Deferred EXTREMITIES: Moves all 4 extremities spontaneously. No edema, normal radial and dorsalis pedis pulses bilaterally. No cyanosis. BACK: no cervical, thoracic, lumbar midline tenderness. No saddle anesthesia, normal distal neurovascular exam. Moves all extremities in full range of motion. NEUROLOGICAL: Alert and oriented x3. Normal speech. Cranial nerves II through XII grossly intact. PSYCH: Normal affect, normal mood. SKIN: Warm, dry, normal turgor. No rashes or lesions noted. Course - Re-evaluation Re-evalutation: Patient with cough, this is noted to be productive with greenish sputum. Patient also has a lot of wheezing and rhonchi. She is not in distress however, she speaks in full sentences. Borderline vital signs initially, given IV fluids, DuoNeb, Solu-Medrol, rechecked. Patient is tachycardic, however she states she is always tachycardic. She also has some anemia but this is up and down as well. Her current bleeding. No leukocytosis, unremarkable venous blood gas, lactic acid is normal, chemistry unremarkable. Chest x-ray shows right upper lobe pneumonia. Cultures pending. Patient was given doxycycline and Rocephin here. Given an additional DuoNeb. Afterwards patient states she feels much better she is ready for discharge. We did ambulate patient obtaining pulse oxygenation, she did excellently with this with an average pulse oxygenation of 97%. She also did not have respiratory distress with this. I discussed smoking cessation, provided with work-release, discussed treatments, discussed strict return precautions, provided with an inhaler and spacer for home. Patient states understanding and agreement. - Vital Signs Vital signs: Temp Pulse Resp BP Pulse Ox 99.1 F 111 H 28 H 111/57 L 96 06/08/19 23:55 06/08/19 23:55 06/09/19 05:59 06/09/19 05:59 06/09/19 04:00 - Laboratory Result Diagrams: 06/09/19 03:15 06/09/19 03:15 Laboratory results interpreted by me: 06/09/19 06/09/19 03:15 03:15 Hgb 8.3 L Hct 26.8 L MCV 67 L MCH 20.6 L MCHC 30.9 L RDW 17.4 H Lymph % (Auto) 12.7 L VBG pH 7.43 H Discharge - Discharge Clinical Impression: Productive cough, Wheezing, Tobacco abuse Pneumonia Qualifiers: Pneumonia type: due to unspecified organism Laterality: right Lung location: upper lobe of lung Qualified Code(s): J18.1 - Lobar pneumonia, unspecified organism Condition: Stable Disposition: HOME, SELF-CARE Additional Instructions: Your chest x-ray shows a right upper lobe pneumonia. Your evaluation also suggests a COPD exacerbation. Take prednisone as prescribed, use the albuterol inhaler as prescribed as needed, take the antibiotics as prescribed to completion. Rest. Stay hydrated. Follow-up with primary care. Stop smoking. Return if you worsen including increased difficulty breathing, spiking fever, or any other concerning or worsening symptoms. Prescriptions: Prednisone [Deltasone 20 mg Tablet] 2 tab PO DAILY 5 Days #10 tablet Doxycycline Hyclate 100 mg PO BID #14 capsule Forms: Return to Work Referrals: LINDA ACOSTA MD [Primary Care Provider] - Follow up as needed
[2019-06-09 03:29] LABS: ABSOLUTE BASOPHILS # (AUTO) 0.1 10^3/uL (0.0-0.2); ABSOLUTE EOSINOPHILS # (AUTO) 0.2 10^3/uL (0.0-0.6); ABSOLUTE LYMPHOCYTES (AUTO) 1.2 10^3/uL (0.5-4.7); ABSOLUTE MONOCYTES (AUTO) 0.7 10^3/uL (0.1-1.4); ABSOLUTE NEUT (AUTO) 7.2 10^3/uL (1.7-8.2); BASOPHILS % (AUTO) 0.6 % (0-2); EOSINOPHILS % (AUTO) 2.2 % (0-6); HEMATOCRIT 26.8 % (36.0-47.0); HEMOGLOBIN 8.3 g/dL (12.0-15.5); LYMPHOCYTES % (AUTO) 12.7 % (13-45); MEAN CORPUSCULAR HEMOGLOBIN 20.6 pg (27.0-33.4); MEAN CORPUSCULAR HGB CONC 30.9 g/dL (32.0-36.0); MEAN CORPUSCULAR VOLUME 67 fl (80-97); MONOCYTES % (AUTO) 7.4 % (3-13); PLATELET COUNT 324 10^3/uL (150-450); RED BLOOD COUNT 4.02 10^6/uL (3.72-5.28); RED CELL DISTRIBUTION WIDTH 17.4 % (11.5-14.0); SEGMENTED NEUTROPHILS % (AUTO) 77.1 % (42-78); TOTAL CELLS COUNTED % (AUTO) 100 %; WHITE BLOOD COUNT 9.3 10^3/uL (4.0-10.5)
[2019-06-09 03:31] LABS: VENOUS BLOOD BASE EXCESS 2.3 mmol/L; VENOUS BLOOD HCO3 26.9 mmol/L (20-32); VENOUS BLOOD PCO2 41.6 mmHg (35-63); VENOUS BLOOD PH 7.43 (7.30-7.42)
[2019-06-09 03:43] LABS: ALBUMIN 3.7 g/dL (3.5-5.0); ALKALINE PHOSPHATASE 103 U/L (38-126); ANION GAP 9 (5-19); ASPARTATE AMINO TRANSFERASE 15 U/L (14-36); BILIRUBIN,TOTAL 0.4 mg/dL (0.2-1.3); BLOOD UREA NITROGEN 9 mg/dL (7-20); CALCIUM 8.8 mg/dL (8.4-10.2); CARBON DIOXIDE 27 mmol/L (22-30); CHLORIDE 102 mmol/L (98-107); GLUCOSE 91 mg/dL (75-110); POTASSIUM 4.1 mmol/L (3.6-5.0); TOTAL PROTEIN 6.5 g/dL (6.3-8.2)
[2019-06-09] MEDS ORDERED: METHYLPREDNISOLONE INJ 125 MG/2 ML SDV IV ONE (04:38)
[2019-06-09] MEDS ORDERED: ALBUTEROL SULFATE HFA (90 MCG/PUFF) 8 GM MDI (1 MDI/ER DISP) IH ONE (05:51)
[2019-06-09 06:15] VITALS: BP 111/57
--- NOTE | 2019-06-09 13:29 | RADIOLOGY REPORT (SQ) ---
EXAM DESCRIPTION: XR CHEST 2 VIEWS COMPLETED DATE/TME: CLINICAL HISTORY: 43 years, Female, Cough, unable to take deep breaths COMPARISON: X-ray chest 02/24/2019 NUMBER OF VIEWS: TECHNIQUE: LIMITATIONS: None. FINDINGS: There is infiltrate in the lateral aspect of the right upper lobe, compatible with pneumonia. No evidence of pleural effusion. The heart and mediastinum are unremarkable. Pulmonary vascularity appears normal. IMPRESSION: Right upper lobe pneumonia. copyright 2010 [employer]- All Rights Reserved
--- NOTE | 2019-06-09 23:56 | EKG REPORT ---
SEVERITY:- BORDERLINE ECG - SINUS TACHYCARDIA PROBABLE LEFT ATRIAL ABNORMALITY : Confirmed by: Yoanna Ocampo 09-Jun-2019 23:56:09
== END 2019-06-09 06:15 | disposition home or self-care (01) ==
LOC: ER 23:42
DX: J18.1 Lobar pneumonia, unspecified organism (principal); R05 Cough; R06.2 Wheezing; R06.02 Shortness of breath; F17.200 Nicotine dependence, unspecified, uncomplicated
CPT/HCPCS: 93005; 36415; 87040; 85025; 80053; 82803; 83605; 71046; 93010; J2930; J7030; J0696; J3490; J7620; 94640; 96361; 96365; 96375; 99285

== ENCOUNTER 2019-09-26 03:42 | Emergency (ER) | payer SELFPAY ==
[2019-09-26] MEDS ORDERED: IPRATROPIUM/ALBUTEROL 0.5-2.5 MG/3 ML AMPUL NEB ONE (04:38)
--- NOTE | 2019-09-26 07:02 | RADIOLOGY REPORT (SQ) ---
PA and lateral chest radiograph: 09/26/2019 6:01 AM PHARMACY INTAKE COORDINATOR Comparison: None available Indication: 44-year old patient with chest pain with inhalation wheezing. Findings: The cardiomediastinal silhouette is normal in size.No pneumothorax is seen. No acute airspace opacities are seen. No discrete pleural effusion is apparent. Impression: No acute airspace opacities are seen.
[2019-09-26] MEDS ORDERED: ALBUTEROL SULFATE 0.083% NEB 2.5 MG/3 ML AMPUL NEB ONE (07:31)
[2019-09-26] MEDS ORDERED: PREDNISONE 20 MG TABLET PO ONE (07:31)
--- NOTE | 2019-09-26 08:53 | ER Document Report ---
Entered by RANDI RANGEL SCRIBE 09/26/19 0731 Acting as scribe for:YOHANA KUO MD ED General - General Chief Complaint: Chest Pain Stated Complaint: CONGESTION,HARD TIME BREATHING Time Seen by Provider: 09/26/19 07:22 Primary Care Provider: LINDA ACOSTA MD [Primary Care Provider] - Follow up as needed Information source: Patient Notes: This 44-year-old female patient presents to the emergency department today with complaints of left-sided posterior chest pain for 1 week. Patient has also had a nonproductive cough, stating that she feels like she should "cough stuff up, but nothing comes out". Patient denies any anterior chest pain. Patient states it hurts when he breathes as well. Patient denies any fevers. Pertinent PMHx/PSHx: Patient has a remote history of Hodgkin's lymphoma, in remission since 1995 to patient's knowledge. Patient denies taking any daily medications - additional PMHx/PSHx not pertinent to this visit as recorded. PCP: none TRAVEL OUTSIDE OF THE [place] IN LAST 30 DAYS: No - Related Data Allergies/Adverse Reactions: Iodinated Contrast Media [Iodinated Contrast- Oral and IV Dye] Allergy (Verified 01/22/18 09:25) iodine Allergy (Verified 01/22/18 08:28) Penicillins Allergy (Verified 01/22/18 08:28) Past Medical History - General Information source: Patient - Social History Smoking Status: Current Every Day Smoker Cigarette use (# per day): Yes Chew tobacco use (# tins/day): No Frequency of alcohol use: None Drug Abuse: None Lives with: Family Family History: Reviewed & Not Pertinent, Other Patient has suicidal ideation: No Patient has homicidal ideation: No Malignancy Medical History: Reports: Hx Lymphoma - History of Hodgkin's lymphoma, in remission since 1995 to her knowledge. Past Surgical History: Reports: Hx Cholecystectomy, Other - Neck biopsy which revealed Hodgkin's lymphoma Review of Systems - Review of Systems Constitutional: denies: Fever EENT: No symptoms reported Cardiovascular: See HPI, Chest pain - posterior Respiratory: See HPI, Cough, Hurts to breathe Gastrointestinal: No symptoms reported Genitourinary: No symptoms reported Female Genitourinary: No symptoms reported Musculoskeletal: No symptoms reported Skin: No symptoms reported Hematologic/Lymphatic: No symptoms reported Neurological/Psychological: No symptoms reported -: Yes All other systems reviewed and negative Physical Exam - Vital signs Vitals: Temp Pulse Resp BP Pulse Ox 97.4 F 102 H 20 115/57 L 100 09/26/19 03:47 09/26/19 03:47 09/26/19 03:47 09/26/19 03:47 09/26/19 03:47 - Notes Notes: Physical Exam: General: Initially sleeping with snoring respirations, becomes alert with gentle shaking. HEENT: Normocephalic. Atraumatic. PERRL. Extraocular movements intact. Oropharynx clear. Neck: Supple. Non-tender. Respiratory: No respiratory distress. Coarse breath sounds bilaterally consistent with smoking history. Left lateral chest wall tenderness with palpation which does not reproduce the pain the patient is complaining about, she indicates her pain is in the left posterior chest wall but this area is not tender. Cardiovascular: Regular rate and rhythm. Abdominal: Morbidly obese. Non-tender. No distension. Normal Bowel Sounds. Back: No gross abnormalities. Extremities: Moves all four extremities. Upper extremities: Normal inspection. Normal ROM. Lower extremities: Normal inspection. No edema. Normal ROM. Neurological: Normal cognition. AAOx4. Normal speech. Psychological: Normal affect. Normal Mood. Skin: Warm. Dry. Normal color. Course - Re-evaluation Re-evalutation: 09/26/19 11:42 CTA of the chest shows some pleural-based opacities in the posterior left lung in the same region as the patient's pleuritic pain. She does report that she had "pneumonia" in June last year. - Vital Signs Vital signs: Temp Pulse Resp BP Pulse Ox 98.4 F 104 H 20 152/92 H 100 09/26/19 10:23 09/26/19 10:23 09/26/19 10:23 09/26/19 10:23 09/26/19 10:23 - Laboratory Result Diagrams: 09/26/19 08:12 09/26/19 08:12 Laboratory results interpreted by me: 09/26/19 09/26/19 08:12 08:12 Hgb 9.3 L Hct 30.2 L MCV 65 L MCH 20.0 L MCHC 30.7 L RDW 18.7 H D-Dimer 0.84 H - Diagnostic Test Radiology reviewed: Image reviewed, Reports reviewed - Chest x-ray does not show any acute abnormalities. - EKG Interpretation by Me EKG shows normal: Sinus rhythm, [place], QRS Complexes, ST-T Waves. abnormal: Intervals - Prolonged QT interval Rate: Normal - 96 Rhythm: NSR P Waves: SHARON When compared to previous EKG there are: No significant change Discharge - Discharge Clinical Impression: Left upper lobe pulmonary infiltrate, Pleuritic chest pain Condition: Stable Disposition: HOME, SELF-CARE Additional Instructions: Pleurisy: Your chest pain has been diagnosed as pleuritis (pleurisy). This is an inflammation of the surface of the lung tissue. It can be caused by a virus or, occasionally, old scar tissue. It is painful but, for the most part, not a serious problem. This pain is usually made worse by deep breathing, coughing, or sudden movements of the upper body or arms. The treatment is relief of symptoms. It includes rest, antiinflammatory medication, and pain medicine. Resolution of the pain is usually rapid once antiinflammatory medication is started. Warning signs of a more serious problem include: a fever, shortness of breath, pain that radiates to your jaw, shoulders or arms, or coughing up bloody sputum. If any of these symptoms occur, call the physician at once. Pneumonia: Your examination indicates that you have pneumonia. This is an infection of the lung tissue, usually caused by bacteria or a virus. Symptoms include cough, fever, shaking chills, chest pain, shortness of breath, and coughing up bloody sputum. Treatment for bacterial pneumonia includes rest, antibiotics for 10 to 14 days, increasing your clear liquid intake, a cool mist humidifier at your bedsi de, and fever medication. Often, a repeat chest X-ray is performed in a few weeks--even if you feel better--to ascertain whether the infection has completely resolved and no underlying lung problem is present. You should call the physician if you develop persistent vomiting, high fever that does not respond to fever medication, increasing shortness of breath, confusion, or lethargy. Also, failure to improve within two to three days is an indication for re-examination. The CT scan today shows some opacities on the back of your left lung in the same region as your pleuritic pain. These are likely small pneumonias. We will treat you with antibiotics. Start taking the Levaquin as prescribed today. Start taking the prednisone tomorrow. You should take ibuprofen or Aleve for pain. Take the generic version of Delsym DM to help suppress your cough. Drink plenty of fluids and get plenty of rest. Follow-up with your primary care provider for recheck and to repeat the CT scan and perhaps 4 to 6 weeks to ensure that these opacities have gone away. RETURN TO THE EMERGENCY ROOM IF ANY NEW OR WORSENING SYMPTOMS. Prescriptions: Prednisone [Deltasone 10 mg Tablet] 10 mg PO ASDIR PRN #21 tablet PRN Reason: Levofloxacin [Levaquin 750 mg Tablet] 750 mg PO DAILY #5 tablet Forms: Return to Work Referrals: LINDA ACOSTA MD [Primary Care Provider] - Follow up as needed I personally performed the services described in the documentation, reviewed and edited the documentation which was dictated to the scribe in my presence, and it accurately records my words and actions.
[2019-09-26 09:01] LABS: ABSOLUTE BASOPHILS # (AUTO) 0.1 10^3/uL (0.0-0.2); ABSOLUTE EOSINOPHILS # (AUTO) 0.3 10^3/uL (0.0-0.6); ABSOLUTE LYMPHOCYTES (AUTO) 1.7 10^3/uL (0.5-4.7); ABSOLUTE MONOCYTES (AUTO) 0.5 10^3/uL (0.1-1.4); ABSOLUTE NEUT (AUTO) 3.8 10^3/uL (1.7-8.2); BASOPHILS % (AUTO) 1.3 % (0-2); EOSINOPHILS % (AUTO) 5.3 % (0-6); HEMATOCRIT 30.2 % (36.0-47.0); HEMOGLOBIN 9.3 g/dL (12.0-15.5); LYMPHOCYTES % (AUTO) 26.2 % (13-45); MEAN CORPUSCULAR HGB CONC 30.7 g/dL (32.0-36.0); MEAN CORPUSCULAR VOLUME 65 fl (80-97); MONOCYTES % (AUTO) 7.3 % (3-13); RED BLOOD COUNT 4.64 10^6/uL (3.72-5.28); RED CELL DISTRIBUTION WIDTH 18.7 % (11.5-14.0); SEGMENTED NEUTROPHILS % (AUTO) 59.9 % (42-78); TOTAL CELLS COUNTED % (AUTO) 100 %; WHITE BLOOD COUNT 6.3 10^3/uL (4.0-10.5)
[2019-09-26 09:11] LABS: ALKALINE PHOSPHATASE 100 U/L (38-126); ANION GAP 8 (5-19); ASPARTATE AMINO TRANSFERASE 15 U/L (14-36); BILIRUBIN,DIRECT 0.3 mg/dL (0.0-0.4); BILIRUBIN,TOTAL 0.4 mg/dL (0.2-1.3); BLOOD UREA NITROGEN 9 mg/dL (7-20); CALCIUM 8.9 mg/dL (8.4-10.2); CARBON DIOXIDE 26 mmol/L (22-30); CHLORIDE 104 mmol/L (98-107); CREATINE KINASE 31 U/L (30-135); GLUCOSE 89 mg/dL (75-110); TOTAL PROTEIN 6.7 g/dL (6.3-8.2)
[2019-09-26 09:34] LABS: PLATELET COUNT 205 10^3/uL (150-450)
[2019-09-26] MEDS ORDERED: FAMOTIDINE INJ/PF 20 MG/2 ML SDV IV ONE (09:54)
[2019-09-26] MEDS ORDERED: METHYLPREDNISOLONE INJ 125 MG/2 ML SDV IV ONE (09:54)
[2019-09-26] MEDS ORDERED: DIPHENHYDRAMINE HCL 50 MG/ML VIAL IV ONE (09:54)
--- NOTE | 2019-09-26 10:54 | RADIOLOGY REPORT (SQ) ---
EXAM DESCRIPTION: CTA CHEST COMPLETED DATE/TIME: 09/26/2019 10:38 am REASON FOR STUDY: elevated d-dimer, L pleuritic CP COMPARISON: Chest radiograph TECHNIQUE: CT scan of the chest performed using helical scanning technique with dynamic intravenous contrast injection. Images reviewed with lung, soft tissue and bone windows. Reconstructed coronal and sagittal MPR images reviewed. Additional 3 dimensional post-processing performed to develop Maximal Intensity Projection images (NV P). All images stored on PACS. All CT scanners at this facility use dose modulation, iterative reconstruction, and/or weight based d osing when appropriate to reduce radiation dose to as low as reasonably achievable (ALARA). [facility]: Dose Right [facility]: CareDose [facility]: Dose Right [facility]: Teradose 4D [facility]: WishLink CONTRAST TYPE AND DOSE: contrast/concentration: Isovue 350.00 mg/ml; Total Contrast Delivered: 75.0 ml; Total Saline Delivered: 70.0 ml Contrast bolus adequate for pulmonary arteries and aorta. RENAL FUNCTION: None required. The patient is less than 50 years old. RADIATION DOSE: CT Rad equipment meets quality standard of care and radiation dose reduction techniq ues were employed. CTDIvol: 33.1 - 34.9 mGy. DLP: 1223 mGy-cm. . LIMITATIONS: None. FINDINGS: LUNGS AND PLEURA: Focal parenchymal opacity pleural-based left lung image 52 sequence 4. 6 mm pleural based pulmonary nodule right lung image 82 series 4. No pneumothorax. AORTA AND GREAT VESSELS: No aneurysm. Contrast bolus not optimized for the aorta. HEART: No pericardial effusion. No significant coronary artery calcifications. PULMONARY ARTERIES: No emboli visualized in the main pulmonary arteries or the segmental branches. HILAR AND MEDIASTINAL STRUCTURES: No identified masses or abnormal nodes. HARDWARE: None in the chest. UPPER ABDOMEN: No significant findings. Limited exam. THYROID AND OTHER SOFT TISSUES: No masses. No adenopathy. BONES: No acute or significant finding. 3D MIPS: Confirm above findings. OTHER: No other significant finding. IMPRESSION: No pulmonary emboli. Parenchymal opacities in the lungs as described. COMMENT: Quality ID # [id number]: Final reports with documentation of one or more dose reduction techniques (e.g., Automated exposure control, adjustment of the mA and/or kV according to patient size, use of iterative reconstruction technique) TECHNICAL DOCUMENTATION: JOB ID: [id number] 2010 [employer]- All Rights Reserved Reading location - IP/workstation name: [email or web address]
--- NOTE | 2019-09-26 11:55 | EKG REPORT ---
SEVERITY:- ABNORMAL ECG - SINUS RHYTHM RIGHT ATRIAL ABNORMALITY PROLONGED QT INTERVAL : Confirmed by: Yoanna Ocampo 26-Sep-2019 11:54:13
[2019-09-26 12:03] VITALS: BP 154/75
== END 2019-09-26 12:02 | disposition home or self-care (01) ==
LOC: ER 03:42
DX: R07.81 Pleurodynia (principal); R91.8 Other nonspecific abnormal finding of lung field; R07.1 Chest pain on breathing; R05 Cough; F17.210 Nicotine dependence, cigarettes, uncomplicated; Z85.71 Personal history of Hodgkin lymphoma; Z87.01 Personal history of pneumonia (recurrent); Z91.041 Radiographic dye allergy status; Z88.0 Allergy status to penicillin
CPT/HCPCS: 93005; 94640 ×2; 99285; 96374; 96375; 36415; 82550; 85025; 80053; 84484; 85379; 71046; 71275; 93010; J1200; J2930; J7512; S0028; J7620

== ENCOUNTER 2019-10-20 07:17 | Emergency (ER) | payer SELFPAY ==
[2019-10-20 07:47] VITALS: BP 118/73
[2019-10-20 08:18] LABS: A TYPE INFLUENZA AG NEGATIVE (NEGATIVE); B INFLUENZA AG NEGATIVE (NEGATIVE)
[2019-10-20] MEDS ORDERED: PREDNISONE 20 MG TABLET PO ONE (08:41)
[2019-10-20] MEDS ORDERED: IPRATROPIUM/ALBUTEROL 0.5-2.5 MG/3 ML AMPUL NEB ONE (08:41)
[2019-10-20 09:06] LABS: ABSOLUTE EOSINOPHILS # (AUTO) 0.2 10^3/uL (0.0-0.6); ABSOLUTE LYMPHOCYTES (AUTO) 0.9 10^3/uL (0.5-4.7); ABSOLUTE MONOCYTES (AUTO) 0.6 10^3/uL (0.1-1.4); ABSOLUTE NEUT (AUTO) 7.1 10^3/uL (1.7-8.2); BASOPHILS % (AUTO) 0.5 % (0-2); EOSINOPHILS % (AUTO) 2.5 % (0-6); HEMATOCRIT 26.7 % (36.0-47.0); LYMPHOCYTES % (AUTO) 10.3 % (13-45); MEAN CORPUSCULAR HEMOGLOBIN 19.4 pg (27.0-33.4); MEAN CORPUSCULAR HGB CONC 30.1 g/dL (32.0-36.0); PLATELET COUNT 332 10^3/uL (150-450); RED BLOOD COUNT 4.15 10^6/uL (3.72-5.28); RED CELL DISTRIBUTION WIDTH 18.9 % (11.5-14.0); SEGMENTED NEUTROPHILS % (AUTO) 79.7 % (42-78); TOTAL CELLS COUNTED % (AUTO) 100 %; WHITE BLOOD COUNT 8.9 10^3/uL (4.0-10.5)
[2019-10-20 09:09] LABS: MEAN CORPUSCULAR VOLUME 64 fl (80-97)
--- NOTE | 2019-10-20 09:10 | ER Document Report ---
Entered by RIN AHUMADA SCRIBE 10/20/19 0820 Acting as scribe for:YOHANA KUO MD ED General - General Chief Complaint: Breathing Difficulty Stated Complaint: COUGH/FEVER Time Seen by Provider: 10/20/19 08:19 Mode of Arrival: Ambulatory Information source: Patient Notes: This 44 year old female patient presents to the ED today with complaints of shortness of breath that occurred prior to arrival. Patient was diagnosed with pneumonia x2 weeks ago and states that her symptoms have not improved. Patient also reports fever and nonproductive cough for the past x3-4 days, but states the fevers are "nothing major". Patient reports pleuritic pain in her left chest that is unchanged from before. Patient states that she recently traveled to [facility], [place], and [place] to assist her kid whose car broke down; patient notes that she wasn't visiting in any specific areas. 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 Patient states that the steroids she received on her last visit (09/26/19) relieved her symptoms while she was taking it. TRAVEL OUTSIDE OF THE [place] IN LAST 30 DAYS: No - Related Data Allergies/Adverse Reactions: Iodinated Contrast Media [Iodinated Contrast- Oral and IV Dye] Allergy (Verified 01/22/18 09:25) iodine Allergy (Verified 01/22/18 08:28) Penicillins Allergy (Verified 01/22/18 08:28) Past Medical History - Social History Smoking Status: Current Some Day Smoker Cigarette use (# per day): Yes - Reports x2 cigarettes in the last x2 weeks Chew tobacco use (# tins/day): No Smoking Education Provided: No Frequency of alcohol use: None Drug Abuse: None Family History: Reviewed & Not Pertinent, Other Patient has suicidal ideation: No Patient has homicidal ideation: No - Medical History Medical History: Other - Iron deficiency anemia Renal/ Medical History: Reports: Other - Patient has heavy periods causing iron deficiency anemia Malignancy Medical History: Reports: Hx Lymphoma - History of Hodgkin's lymphoma, in remission since 1995 to her knowledge. Past Surgical History: Reports: Hx Cholecystectomy, Other - Neck biopsy which revealed Hodgkin's lymphoma Review of Systems - Review of Systems Constitutional: See HPI, Fever EENT: No symptoms reported Cardiovascular: See HPI, Chest pain - pleuritic Respiratory: See HPI, Cough, Short of breath. denies: Sputum Gastrointestinal: No symptoms reported Genitourinary: No symptoms reported Female Genitourinary: Heavy/abnormal periods - Chronically heavy periods that last up to 3 weeks. Musculoskeletal: No symptoms reported Skin: No symptoms reported Hematologic/Lymphatic: No symptoms reported Neurological/Psychological: No symptoms reported -: Yes All other systems reviewed and negative Physical Exam - Vital signs Vitals: Resp 22 H 10/20/19 07:36 - General General appearance: Alert, Other - Hoarse - HEENT Head: Normocephalic, Atraumatic Eyes: Normal Pupils: PERRL - Respiratory Respiratory status: No respiratory distress Chest status: Nontender Breath sounds: Rhonchi, Wheezing Chest palpation: Normal - Cardiovascular Rhythm: Regular Heart sounds: Normal auscultation Murmur: No - Abdominal Inspection: Obese Distension: No distension Bowel sounds: Normal Tenderness: Nontender - Abdomen soft Organomegaly: No organomegaly - Back Back: Normal, Nontender - Extremities General upper extremity: Normal inspection General lower extremity: Normal inspection - Neurological Neuro grossly intact: Yes - Psychological Associated symptoms: Normal affect, Normal mood - Skin Skin Temperature: Warm Skin Moisture: Dry Skin Color: Normal Course - Re-evaluation Re-evalutation: 10/20/19 12:49 Patient's blood work indicates an iron deficiency anemia. Patient states she has periods that last 3 weeks at a time. She does have iron tablets at home but rarely takes them. We discussed the need to do that and she agrees to start taking her iron tablets again. - Vital Signs Vital signs: Temp Pulse Resp BP Pulse Ox 98.2 F 100 34 H 118/73 97 10/20/19 12:44 10/20/19 07:46 10/20/19 12:44 10/20/19 12:44 10/20/19 12:44 - Laboratory Result Diagrams: 10/20/19 08:45 10/20/19 08:45 Laboratory results interpreted by me: 10/20/19 10/20/19 08:45 08:45 Hgb 8.0 L Hct 26.7 L MCV 64 L MCH 19.4 L MCHC 30.1 L RDW 18.9 H Lymph % (Auto) 10.3 L Seg Neutrophils % 79.7 H AST 13 L Creatine Kinase 22 L - Diagnostic Test Radiology reviewed: Image reviewed, Reports reviewed - Chest x-ray shows mid right lung and bibasilar opacities Discharge - Discharge Clinical Impression: Bronchitis with bronchospasm, Iron deficiency anemia due to chronic blood loss Upper respiratory tract infection Qualifiers: URI type: unspecified URI Qualified Code(s): J06.9 - Acute upper respiratory infection, unspecified Pneumonia Qualifiers: Pneumonia type: due to unspecified organism Laterality: bilateral Lung location: lower lobe of lung Qualified Code(s): J18.9 - Pneumonia, unspecified organism Condition: Stable Disposition: HOME, SELF-CARE Additional Instructions: Bronchitis with Bronchospasm (Wheezing): You have bronchitis with bronchospasm (wheezing). Sometimes people develop wheezing with a chest cold. This occurs either because of an underlying tendency toward asthma or because the virus itself irritates the bronchial tubes. This irritation causes cough, shortness of breath, and wheezing. Emergency treatment of bronchospasm may include adrenaline shots or bronchodilator aerosol. You may feel lightheaded and have a rapid pulse for an hour or two. Rest and get plenty of fluids. At home, we'll treat you with a bronchodilator inhaler. Corticosteroids may be required for some patients. Until you recover, avoid chemical fumes, dusts, pollens, and exercising in very cold or dry air. If you smoke, stop now! Most cases of bronchitis get better without antibiotics. We prescribe antibiotics when we believe bacteria are damaging your airways, or if there's high risk the bronchitis will worsen into pneumonia. Increase your fluid intake. A cool mist humidifier may make your lungs more comfortable. An expectorant (cough medicine that loosens phlegm) can help. Repeated episodes of bronchitis and bronchospasm may result in lung damage -- for example, chronic bronchitis, recurrent pneumonias, or emphysema. If you develop a fever, increased wheezing, chest pain, or severe shortness of breath, you should contact the doctor immediately. Pneumonia: Your examination indicates that you have pneumonia. This is an infection of the lung tissue, usually caused by bacteria or a virus. Symptoms include cough, fever, shaking chills, chest pain, shortness of breath, and coughing up bloody sputum. Treatment for bacterial pneumonia includes rest, antibiotics for 10 to 14 days, increasing your clear liquid intake, a cool mist humidifier at your bedsid e, and fever medication. Often, a repeat chest X-ray is performed in a few weeks--even if you feel better--to ascertain whether the infection has completely resolved and no underlying lung problem is present. You should call the physician if you develop persistent vomiting, high fever that does not respond to fever medication, increasing shortness of breath, confusion, or lethargy. Also, failure to improve within two to three days is an indication for re-examination. Take the medications as prescribed. Start the prednisone tomorrow, you have had today's dose here in the emergency room. Drink plenty fluids and get plenty of rest. Try taking Delsym DM or Robitussin-DM to help suppress your cough. Follow-up with a local primary care provider if not improving. RETURN TO THE EMERGENCY ROOM IF ANY NEW OR WORSENING SYMPTOMS. Prescriptions: Ipratropium [place] [Atrovent 0.02% Neb 0.5 mg/2.5 ml Ampul] 0.5 mg NEB ASDIR PRN #40 vial.neb PRN Reason: Prednisone [Deltasone 20 mg Tablet] 20 mg PO BID #12 tablet Doxycycline Hyclate 100 mg PO BID #20 tablet. Albuterol Sulfate [Proair Hfa Inhalation Aerosol 8.5 gm Mdi] 2 puff IH Q4 PRN #1 mdi PRN Reason: Albuterol Sulfate [Proventil 0.5% Neb 2.5 mg/0.5 ml Vial.neb] 2.5 mg NEB ASDIR PRN #50 vial.neb PRN Reason: Forms: Return to Work I personally performed the services described in the documentation, reviewed and edited the documentation which was dictated to the scribe in my presence, and it accurately records my words and actions.
[2019-10-20 09:25] LABS: ALBUMIN 3.5 g/dL (3.5-5.0); ALKALINE PHOSPHATASE 96 U/L (38-126); ANION GAP 8 (5-19); ASPARTATE AMINO TRANSFERASE 13 U/L (14-36); BILIRUBIN,TOTAL 0.3 mg/dL (0.2-1.3); BLOOD UREA NITROGEN 10 mg/dL (7-20); CALCIUM 8.5 mg/dL (8.4-10.2); CARBON DIOXIDE 27 mmol/L (22-30); CHLORIDE 102 mmol/L (98-107); CREATINE KINASE 22 U/L (30-135); GLUCOSE 86 mg/dL (75-110); TOTAL PROTEIN 6.6 g/dL (6.3-8.2)
[2019-10-20 09:26] LABS: ANISOCYTOSIS 2+; HYPOCHROMASIA 2+; OVALOCYTES SLIGHT; PLATELET COMMENT ADEQUATE; PLATELET LARGE PRESENT; POIKILOCYTOSIS SLIGHT; POLYCHROMASIA SLIGHT; TOXIC GRANULATION 1+
[2019-10-20] MEDS ORDERED: ALBUTEROL SULFATE 0.083% NEB 2.5 MG/3 ML AMPUL NEB ONE (10:18)
--- NOTE | 2019-10-20 10:27 | RADIOLOGY REPORT (SQ) ---
EXAM DESCRIPTION: CHEST 2 VIEWS COMPLETED DATE/TIME: 10/20/2019 10:17 am REASON FOR STUDY: Cough, congestion, wheezing COMPARISON: 09/26/2019 EXAM PARAMETERS: NUMBER OF VIEWS: two views TECHNIQUE: Digital Frontal and Lateral radiographic views of the chest acquired. RADIATION DOSE: NA LIMITATIONS: none FINDINGS: LUNGS AND PLEURA: Ill-defined right mid lung and bibasilar opacities. No dense consolidat ion. No pleural effusion or pneumothorax. MEDIASTINUM AND HILAR STRUCTURES: No masses or contour abnormalities. HEART AND VASCULAR STRUCTURES: Heart normal size. No evidence for failure. BONES: No acute findings. HARDWARE: None in the chest. OTHER: No other significant finding. IMPRESSION: Mild ill-defined right mid lung and bibasilar opacities possibly infectious/ inflammator y. No dense consolidation. No significant effusion. TECHNICAL DOCUMENTATION: JOB ID: [id number] 2010 [employer]- All Rights Reserved Reading location - IP/workstation name: [email or web address]
[2019-10-21 13:24] LABS: PATH REVIEW PATHOLOGIST REVIEWED
== END 2019-10-20 13:02 | disposition home or self-care (01) ==
LOC: ER 07:17
DX: J18.9 Pneumonia, unspecified organism (principal); J40 Bronchitis, not specified as acute or chronic; J06.9 Acute upper respiratory infection, unspecified; J98.01 Acute bronchospasm; N92.0 Excessive and frequent menstruation with regular cycle; D50.0 Iron deficiency anemia secondary to blood loss (chronic); R06.02 Shortness of breath; R07.81 Pleurodynia; R05 Cough; F17.210 Nicotine dependence, cigarettes, uncomplicated; R06.2 Wheezing; Z91.041 Radiographic dye allergy status; Z88.0 Allergy status to penicillin
CPT/HCPCS: 94640 ×2; 99284; 36415; 82550; 85025; 80053; 87804; 71046; J7512; J7620

== ENCOUNTER 2020-01-11 23:37 | Emergency (ER) | payer SELFPAY ==
[2020-01-12 01:40] LABS: ABSOLUTE BASOPHILS # (AUTO) 0.1 10^3/uL (0.0-0.2); ABSOLUTE EOSINOPHILS # (AUTO) 0.7 10^3/uL (0.0-0.6); ABSOLUTE LYMPHOCYTES (AUTO) 1.2 10^3/uL (0.5-4.7); ABSOLUTE MONOCYTES (AUTO) 0.6 10^3/uL (0.1-1.4); ABSOLUTE NEUT (AUTO) 6.3 10^3/uL (1.7-8.2); BASOPHILS % (AUTO) 0.8 % (0-2); EOSINOPHILS % (AUTO) 8.3 % (0-6); HEMATOCRIT 33.2 % (36.0-47.0); HEMOGLOBIN 10.3 g/dL (12.0-15.5); LYMPHOCYTES % (AUTO) 13.2 % (13-45); MEAN CORPUSCULAR HEMOGLOBIN 21.5 pg (27.0-33.4); MEAN CORPUSCULAR HGB CONC 31.1 g/dL (32.0-36.0); MEAN CORPUSCULAR VOLUME 69 fl (80-97); MONOCYTES % (AUTO) 6.9 % (3-13); PLATELET COUNT 343 10^3/uL (150-450); RED BLOOD COUNT 4.81 10^6/uL (3.72-5.28); RED CELL DISTRIBUTION WIDTH 18.6 % (11.5-14.0); SEGMENTED NEUTROPHILS % (AUTO) 70.8 % (42-78); TOTAL CELLS COUNTED % (AUTO) 100 %; WHITE BLOOD COUNT 8.9 10^3/uL (4.0-10.5)
[2020-01-12 01:54] LABS: ALBUMIN 3.8 g/dL (3.5-5.0); ALKALINE PHOSPHATASE 93 U/L (38-126); ANION GAP 6 (5-19); ASPARTATE AMINO TRANSFERASE 14 U/L (14-36); BILIRUBIN,TOTAL 0.2 mg/dL (0.2-1.3); BLOOD UREA NITROGEN 12 mg/dL (7-20); CALCIUM 9.1 mg/dL (8.4-10.2); CARBON DIOXIDE 29 mmol/L (22-30); CHLORIDE 103 mmol/L (98-107); CREATINE KINASE 22 U/L (30-135); GLUCOSE 96 mg/dL (75-110); POTASSIUM 4.4 mmol/L (3.6-5.0); TOTAL PROTEIN 6.7 g/dL (6.3-8.2)
[2020-01-12 02:11] LABS: CREATINE KINASE MB 0.42 ng/mL (<4.55)
[2020-01-12 02:12] LABS: TROPONIN I < 0.012 ng/mL
[2020-01-12] MEDS ORDERED: IPRATROPIUM/ALBUTEROL 0.5-2.5 MG/3 ML AMPUL NEB ONE (02:35)
--- NOTE | 2020-01-12 02:36 | ER Document Report ---
ED Cardiac - General Chief Complaint: Dizziness Stated Complaint: CHEST PAIN Time Seen by Provider: 01/12/20 02:31 Notes: Patient is a 44-year-old female presents to the emergency department with a chief complaint of dizziness and "feeling a hiccup in her chest." Her symptoms started around 10:00 tonight. States that she felt a slight pain in her chest. Patient states that the feeling in her chest has gone away. States that she does not have any chest pain anymore. Patient is an everyday smoker. She does take metoprolol. TRAVEL OUTSIDE OF THE [place] 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 ALBUTEROL Past Medical History - General Information source: Patient - Social History Smoking Status: Current Every Day Smoker Frequency of alcohol use: None Drug Abuse: None Family History: Reviewed & Not Pertinent, Other Patient has homicidal ideation: No Renal/ Medical History: Denies: Hx Peritoneal Dialysis Malignancy Medical History: Reports: Hx Lymphoma - History of Hodgkin's lymphoma, in remission since 1995 to her knowledge. Past Surgical History: Reports: Hx Cholecystectomy, Other - Neck biopsy which revealed Hodgkin's lymphoma Review of Systems - Review of Systems Notes: REVIEW OF SYSTEMS: CONSTITUTIONAL : Denies recent illness. Denies recent unintentional weight loss. Denies fever, chills, or sweats. EENT: Denies eye, ear, throat, or mouth pain, discharge, or symptoms. Denies nasal or sinus congestion. CARDIOVASCULAR: See HPI. RESPIRATORY: Denies shortness of breath, cough, congestion, difficulty breathing, or wheezing. GASTROINTESTINAL: Denies nausea, vomiting, and diarrhea. Denies abdominal pain. Denies constipation. GENITOURINARY: Denies difficulty urinating, burning, blood in urine, urgency or frequency. MUSCULOSKELETAL: Denies neck and back pain. Denies joint pain or swelling. SKIN: Denies rash, itchiness, or lesions HEMATOLOGIC : Denies easy bruising or bleeding. LYMPHATIC: Denies swollen, painful, enlarged glands. NEUROLOGICAL: Denies no numbness or tingling denies weakness. Denies headache. Denies altered mental status. Denies alteration in speech. PSYCHIATRIC: Denies stress, anxiety, alteration in sleep patterns, or depression. All other systems reviewed and negative. Physical Exam - Vital signs Vitals: Temp Pulse Resp BP Pulse Ox 98.5 F 91 22 H 130/51 H 95 01/11/20 23:59 01/11/20 23:59 01/11/20 23:59 01/11/20 23:59 01/11/20 23:59 - Notes Notes: PHYSICAL EXAMINATION: GENERAL: Appears well, healthy, well-nourished, no acute distress. HEAD: Normocephalic, atraumatic. EYES: PERRL, conjunctiva normal, all extraocular movements intact, sclera nonicteric ENT: Moist mucous membranes. NECK: Supple, no noticeable swelling, redness, rash. Normal range of motion. LUNGS: Expiratory wheezes noted in bilateral upper lobes. CARDIOVASCULAR: S1-S2, regular rate, regular rhythm. Radial pulses 2+, normal. ABDOMEN: Normoactive bowel sounds. Soft, nontender, no guarding, no rebound tenderness, and no masses palpated. EXTREMITIES: Normal strength and range of motion, no pitting or edema. No cyanosis. NEUROLOGICAL: Moves all extremities upon command. Strength 5/5 in all extremities. PSYCH: Normal mood, normal affect. SKIN: Warm, dry. No rash, lesions, ulcerations noted. Normal skin turgor. Course - Re-evaluation Re-evalutation: 01/11/20 02:47 Hematology does not show a leukocytosis, but there is left with 70% neutrophils. Hemoglobin is 10.3 and hematocrit is 33.2. This is better than her previous visit on October 19. Chemistries are unremarkable. Troponin is also negative. We will repeat a second troponin. 01/12/20 05:06 Patient states that she feels better after receiving her DuoNeb treatment. Chest x-ray shows worrisome pneumonia in the left lower lobe. She also has an effusion. Will place her on prednisone, albuterol, and doxycycline. Also give her more albuterol for her nebulizer. Low suspicion for pulmonary emboli as the patient's heart rate is less than 100. Patient is not tachypneic on my exam. Follow-up with her primary care provider. Follow-up precautions were given. Verbal discharge instructions were given to the patient. They verbalized understanding. They are stable for discharge. - Vital Signs Vital signs: Temp Pulse Resp BP Pulse Ox 97.6 F 90 18 146/86 H 99 01/12/20 05:20 01/12/20 05:20 01/12/20 05:20 01/12/20 05:20 01/12/20 05:20 - Laboratory Result Diagrams: 01/12/20 01:20 01/12/20 01:20 Laboratory results interpreted by me: 01/12/20 01/12/20 01:20 01:20 Hgb 10.3 L Hct 33.2 L MCV 69 L MCH 21.5 L MCHC 31.1 L RDW 18.6 H Eos % (Auto) 8.3 H Absolute Eos (auto) 0.7 H Creatine Kinase 22 L Discharge - Discharge Clinical Impression: Tobacco abuse Pneumonia Qualifiers: Pneumonia type: due to unspecified organism Laterality: left Lung location: lower lobe of lung Qualified Code(s): J18.9 - Pneumonia, unspecified organism Condition: Stable Disposition: HOME, SELF-CARE Additional Instructions: You have been diagnosed with a pneumonia. It is very important that you take all of your antibiotics until they are gone even if you are feeling better. Pl ease return to the emergency department immediately if you began having worsening shortness of breath, become confused, have worsening pain, pass out, have persistent vomiting that prevents you from being able to drink fluids for more than 12 hours, or have any other symptoms that are worrisome to you. Please follow-up with your primary care doctor in the next 1-2 days. You are also being sent home with albuterol for your nebulizer. Uses every 4-6 hours as needed for shortness of breath. You are also being placed on steroids. Follow-up with your primary care provider in regards to this visit. Prescriptions: Prednisone [Deltasone 20 mg Tablet] 3 tab PO DAILY 5 Days tablet Doxycycline Hyclate 100 mg PO BID #20 tablet. Albuterol Sulfate [Ventolin 0.042% Neb 1.25 mg/3 mL Ampul] 1 vial NEB Q4 PRN #25 vial.neb PRN Reason:
--- NOTE | 2020-01-12 03:24 | RADIOLOGY REPORT (SQ) ---
EXAM DESCRIPTION: XR CHEST 2 VIEWS COMPLETED DATE/TME: 01/12/2020 02:31 CLINICAL HISTORY: 44 years, Female, chest pain COMPARISON: 06/09/2019 chest NUMBER OF VIEWS: 2 TECHNIQUE: 2 views of the chest LIMITATIONS: None. FINDINGS: Heart size is normal. Left basilar airspace opacity with small left pleural effusion. No pneumothorax IMPRESSION: Left basilar airspace opacity worrisome for pneumonia. Small left effusion copyright 2010 [employer]- All Rights Reserved
[2020-01-12] MEDS ORDERED: PREDNISONE 20 MG TABLET PO ONE (05:10)
[2020-01-12 05:25] VITALS: BP 146/86
--- NOTE | 2020-01-12 11:09 | EKG REPORT ---
SEVERITY:- ABNORMAL ECG - SINUS RHYTHM LEFT ATRIAL ABNORMALITY LEFT VENTRICULAR HYPERTROPHY : Confirmed by: Danielle Sales MD 12-Jan-2020 11:08:45
== END 2020-01-12 05:20 | disposition home or self-care (01) ==
LOC: ER 23:37
DX: J18.9 Pneumonia, unspecified organism (principal); J90 Pleural effusion, not elsewhere classified; R42 Dizziness and giddiness; R06.2 Wheezing; F17.200 Nicotine dependence, unspecified, uncomplicated; Z79.899 Other long term (current) drug therapy; Z91.041 Radiographic dye allergy status; Z88.0 Allergy status to penicillin; Z85.71 Personal history of Hodgkin lymphoma
CPT/HCPCS: 93005; 94640; 99284; 36415; 82553; 82550; 85025; 80053; 84484; 71046; 93010; J7512; J7620